=== PATIENT | male | born 1975 | race Caucasian/White ===

== ENCOUNTER 2016-09-27 17:06 | Emergency (ER) | payer OTHER ==
[2016-09-27 18:53] LABS: BILIRUBIN NEGATIVE (NEGATIVE); BLOOD 1+ Ery/uL (NEGATIVE); CLARITY CLEAR (CLEAR); COLOR YELLOW (YELLOW); GLUCOSE (U) NORMAL (NORMAL); KETONE (U) NEGATIVE (NEGATIVE); LEUKOCYTES NEGATIVE Leu/uL (NEGATIVE); NITRITE NEGATIVE (NEGATIVE); PROTEIN NEGATIVE (NEGATIVE); SPECIFIC GRAVITY <=1.005 (1.001-1.030); UROBILINOGEN 0.2 mg/dL (0.2-1.0); pH 6.5 (5.0-9.0)
[2016-09-27 19:04] LABS: SQUAMOUS EPITHELIAL CELLS RARE; URINARY RBC RARE
[2016-09-27 19:14] LABS: ALBUMIN 4.6 g/dL (3.5-5.0); BILIRUBIN - TOTAL 0.4 mg/dL (0.1-1.0); GLOBULIN (CALCULATION) 2.6 g/dL (2.2-4.2); POTASSIUM 3.5 mmol/L (3.5-5.1); TOTAL PROTEIN 7.2 g/dL (6.4-8.3)
[2016-09-27 19:24] LABS: BASOPHIL 20.2 % (0-2); EOSINOPHIL 0.6 % (0-5); HCT 22.9 % (42.0-52.0); LYMPHOCYTE 19.4 % (15-48); MCH 29.4 pg (25.0-31.0); MCHC 34.9 g/dL (32.0-36.0); MCV 84.2 fL (78.0-100.0); NEUTROPHIL 36.8 % (41-80); RBC 2.72 M/uL (4.70-6.00); RDW 19.5 % (11.5-14.0)
[2016-09-27 19:27] LABS: PLT 33 K/uL (150-400); WBC 8.2 K/uL (4.0-10.5)
== END 2016-09-27 20:52 | disposition home or self-care (01) ==
LOC: FER 17:06
PROVIDERS: Internal Medicine
DX: R55 Syncope and collapse (principal); R42 Dizziness and giddiness; Z85.6 Personal history of leukemia
CPT/HCPCS: 36415; 71010; 80053; 81001; 85025; 86850; 86900; 86901; 93005